=== PATIENT | female | born 1945 | race Caucasian/White ===

== ENCOUNTER → 2016-10-12 | Outpatient (CLI) | payer MEDICARE, BC ==
--- NOTE | 2016-10-13 10:07 | MM ---
Reason for exam: screening (asymptomatic). Last mammogram was performed 1 year ago. History: Patient is postmenopausal and is nulliparous. Benign right mammotome panel of the right breast, October 07, 2006. Benign right mammotome panel of the right breast, May 02, 2006. Benign excisional biopsy of the right breast, 1991. Physical Findings: A clinical breast exam by your physician is recommended on an annual basis and results should be correlated with mammographic findings. MG 3D Screening Mammo W/Cad Bilateral CC and MLO view(s) were taken. Prior study comparison: October 08, 2015, bilateral MG screening mammo w CAD. September 30, 2014, bilateral MG screening mammo w CAD. There are scattered fibroglandular densities. Finding: There are grouped/clustered calcifications in the right breast seen only on CC. Previous mammotome biopsy in the right breast x 2. There is no discrete abnormality. New finding since October 08, 2015 and September 30, 2014. ASSESSMENT: Incomplete: need additional imaging evaluation, BI-RAD 0 RECOMMENDATION: Special view mammogram of the right breast. [facility] will attempt to contact patient to return for supplemental views.
== END | disposition home or self-care (01) ==
LOC: RADMAMWWP 11:16
PROVIDERS: ATTEND Family Medicine
DX: Z12.31 Encounter for screening mammogram for malignant neoplasm of breast (principal); R92.2 Inconclusive mammogram
CPT/HCPCS: 77063; G0202

== ENCOUNTER → 2016-10-14 | Outpatient (CLI) | payer MEDICARE, BC ==
--- NOTE | 2016-10-14 10:50 | MM ---
Reason for exam: additional evaluation requested from abnormal screening. Last mammogram was performed less than 1 month ago. History: Patient is postmenopausal and is nulliparous. Benign right mammotome panel of the right breast, October 07, 2006. Benign right mammotome panel of the right breast, May 02, 2006. Benign excisional biopsy of the right breast, 1991. Physical Findings: Nurse did not find any significant physical abnormalities on exam. MG 3D Work Up W/Cad RT LM and CC with magnification view(s) were taken of the right breast. Prior study comparison: October 12, 2016, bilateral MG 3d screening mammo w/cad. October 08, 2015, bilateral MG screening mammo w CAD. Finding: There are typically benign calcifications in the far upper inner quadrant, posterior position of the right breast. 6 month follow up recommended. These results were verbally communicated with the patient and result sheet given to the patient on 10/14/16. ASSESSMENT: Probably benign, BI-RAD 3 RECOMMENDATION: Follow-up diagnostic mammogram of the right breast in 6 months.
== END | disposition home or self-care (01) ==
LOC: RADMAMWWP 08:31
PROVIDERS: ATTEND Family Medicine
DX: R92.8 Other abnormal and inconclusive findings on diagnostic imaging of breast (principal)
CPT/HCPCS: 77051; G0206; G0279

== ENCOUNTER → 2017-03-28 | Outpatient (CLI) | payer MEDICARE, BC ==
--- NOTE | 2017-03-28 14:56 | BD ---
EXAMINATION TYPE: MG DEXA axial skeleton. DATE OF EXAM: 03/28/2017 COMPARISON: 09.30.2014 DEXA bone scan CLINICAL HISTORY: M81.0 OSTEOPOROSIS.. Height: 51.5 Weight: 218 FRAX RISK QUESTIONS: Alcohol (3 or more units per day): NO Family History (Parent hip fracture): NO Glucocorticoids (More than 3mos): YES (Ex: prednisone, prednisolone, methylprednisolone, dexamethasone, and hydrocortisone). History of Fracture in Adulthood: NO Secondary Osteoporosis: NO 1. Type 1 Diabetes: NO 2. Hyperthyroidism: NO 3. Menopause before 45: NO 4. Malnutrition: NO 5. Chronic liver disease: NO Rheumatoid Arthritis: NO Current Tobacco Use: NO RISK FACTORS HISTORY OF: Family History of Osteoporosis: NONE KNOWN Active: NOT MUCH SHE WOULD LIKE TO Diet low in dairy products/other sources of calcium: NO Postmenopausal woman: YES IN HER 50'S Lost more than 2 inches in height since high school: NOT SURE Adrenal Insufficiency: NO MEDICATIONS: Prednisone or other steroids: SINGULAIR, ADVAIR DISC, VENTOLIN How Long: FOR ASTHMA...30 YRS Thyroid Medications: YES, GENERIC SYNTHROID How Lon YRS Additional Medications: BP MEDS, WATCHING SUGAR, WITH DIET, VIT D , MULTIVITAMIN, STATIN FOR CHOLESTE ROL, NEXIUM OTC Additional History: TOTAL KNEE REPLACEMENT, ASTHMA, OSTEOARTHRITIS, EXAM MEASUREMENTS: Bone mineral densitometry was performed using the iSpecimen System. Bone mineral density as measured about the Lumbar spine is: ----- L1-L4(G/cm2): 1.352 T Score Values are as follows: ----- L1: 1.8 ----- L2: 1.3 ----- L3: 1.9 ----- L4: 0.6 ----- L1-L4: 1.4 Bone mineral density has: Increased 6.5% since study of: 09.30.2014 Bone mineral density about the R hip (g/cm2): 0.874 Bone mineral density about the L hip (g/cm2): 0.968 T Score values are as follows: -----R Neck: -1.0 -----L Neck: -1.1 -----R Total: -1.1 -----L Total: -0.3 Bone mineral density has: Decreased -0.3% since study of: 09.30.2014 FRAX%"S: A 7.2% CHANCE OF A MAJOR OSTEOPOROTIC FX AND A 0.8% CHANCE OF A HIP FX.....PROBABILITY OF FX IN 10 YRS TIME IMPRESSION: Osteopenia (T Score between -2.5 and -1 as noted by T score values at femoral neck level in the left hip remains present. There remains slightly increased risk of fracture and the patient may be conside red for treatment. Re-Screen 2-5 years. NOTE: T-SCORE=SD OF THE YOUNG ADULT MEAN.
== END | disposition home or self-care (01) ==
LOC: RADBDWWP 12:24
PROVIDERS: ATTEND Family Medicine
DX: M85.80 Other specified disorders of bone density and structure, unspecified site (principal)
CPT/HCPCS: 77080

== ENCOUNTER → 2017-05-13 | Outpatient (CLI) | payer MEDICARE, BC ==
--- NOTE | 2017-05-14 08:22 | US ---
EXAMINATION TYPE: US kidneys/renal and bladder DATE OF EXAM: 05/13/2017 COMPARISON: NONE CLINICAL HISTORY: N28.9 acute renal impairment. Abnormal labs EXAM MEASUREMENTS: Right Kidney: 8.7 x 4.2 x 4.9cm Left Kidney: 9.8 x 4.3 x 5.6 cm Right Kidney: smaller in size Left Kidney: cortical thinning Bladder: wnl Bilateral Jets seen: yes There is right renal atrophy. There is cortical thinning on the left. There is no evidence of hydrone phrosis. IMPRESSION: BILATERAL RENAL ATROPHY, GREATER ON THE RIGHT THAN THE LEFT.
== END | disposition home or self-care (01) ==
LOC: RADUSWWP 16:11
PROVIDERS: ATTEND Family Medicine
DX: N26.1 Atrophy of kidney (terminal) (principal)
CPT/HCPCS: 76770

== ENCOUNTER → 2017-05-16 | Outpatient (CLI) | payer MEDICARE, BC ==
--- NOTE | 2017-05-16 11:22 | MM ---
Reason for exam: follow-up at short interval from prior study. Last mammogram was performed 7 months ago. History: Patient is postmenopausal and is nulliparous. Benign right mammotome panel of the right breast, October 07, 2006. Benign right mammotome panel of the right breast, May 02, 2006. Benign excisional biopsy of the right breast, 1991. Physical Findings: Nurse did not find any significant physical abnormalities on exam. MG 3D Diag Mammo W/Cad RT CC, MLO, ML, and CC with magnification view(s) were taken of the right breast. Prior study comparison: October 14, 2016, right breast MG 3d work up w/cad RT. October 12, 2016, bilateral MG 3d screening mammo w/cad. There are scattered fibroglandular densities. Finding: There are stable typically benign calcifications in the right breast. Previous mammotome biopsy in the right breast. There is a chronic nodularity in the right breast. These results were verbally communicated with the patient and result sheet given to the patient on 05/16/17. ASSESSMENT: Benign, BI-RAD 2 RECOMMENDATION: Return to routine screening mammogram schedule for both breasts. Back on schedule.
== END | disposition home or self-care (01) ==
LOC: RADMAMWWP 10:11
PROVIDERS: ATTEND Family Medicine
DX: R92.8 Other abnormal and inconclusive findings on diagnostic imaging of breast (principal)
CPT/HCPCS: G0206; G0279

== ENCOUNTER → 2017-09-09 | Outpatient (CLI) | payer MEDICARE, BC ==
--- NOTE | 2017-09-09 12:33 | CT ---
EXAMINATION TYPE: CT chest wo con DATE OF EXAM: 09/09/2017 COMPARISON: 09/13/2016 HISTORY: Follow-up aneurysm. CT DLP: 430.60 mGycm. Automated Exposure Control for Dose Reduction was Utilized. TECHNIQUE: CT scan of the thorax is performed without IV contrast. FINDINGS: The heart is normal size without pericardial effusion. Coronary vessel calcifications are present and are a marker for coronary artery disease. No thoracic lymphadenopathy. Scattered calcified pleural plaques, for example, peripheral right upper to midlung axial image 16 an d along both hemidiaphragms. No consolidation or pleural effusion. There is a small hiatal hernia. Coronary artery calcification noted. Otherwise, visualized upper abdomen shows no gross normality. Bones: Endplate spondylosis throughout the mid to lower thoracic spine. No osseous destructive proces s. . IMPRESSION: 1. Calcified pleural plaques compatible with prior asbestos exposure. 2. Stable borderline aneurysm of the aorta (ascending 3.9 cm and upper descending 3.3 cm).
== END | disposition home or self-care (01) ==
LOC: RADCTMAIN 12:07
PROVIDERS: ATTEND Thoracic Surgery (Cardiothoracic Vascular Surgery)
DX: I71.2 Thoracic aortic aneurysm, without rupture (principal); J92.9 Pleural plaque without asbestos
CPT/HCPCS: 71250

== ENCOUNTER → 2017-11-29 | Outpatient (CLI) | payer MEDICARE, BC ==
--- NOTE | 2017-12-01 08:43 | MM ---
Reason for exam: screening (asymptomatic). Last mammogram was performed 6 months ago. History: Patient is postmenopausal and is nulliparous. Benign right mammotome panel of the right breast, October 07, 2006. Benign right mammotome panel of the right breast, May 02, 2006. Benign excisional biopsy of the right breast, 1991. Physical Findings: A clinical breast exam by your physician is recommended on an annual basis and results should be correlated with mammographic findings. MG 3D Screening Mammo W/Cad Bilateral CC and MLO view(s) were taken. XCCM view(s) were taken of the left breast. Prior study comparison: October 12, 2016, bilateral MG 3d screening mammo w/cad. October 08, 2015, bilateral MG screening mammo w CAD. September 30, 2014, bilateral MG screening mammo w CAD. There are scattered fibroglandular densities. Previous mammotome biopsy in the right breast x 2. There is chronic nodularity in the left breast. No significant changes when compared with prior studies. ASSESSMENT: Negative, BI-RAD 1 RECOMMENDATION: Routine screening mammogram of both breasts in 1 year.
== END | disposition home or self-care (01) ==
LOC: RADMAMWWP 12:52
PROVIDERS: ATTEND Family Medicine
DX: Z12.31 Encounter for screening mammogram for malignant neoplasm of breast (principal)
CPT/HCPCS: 77063; 77067

== ENCOUNTER 2018-03-16 12:05 | Day surgery (SDC) | payer MEDICARE, BC ==
[2018-03-14 10:00] VITALS: BMI 38.4
[~2018-03-16 12:05] MED LIST: LACTATED RINGERS 1,000 ML IV SCH; LIDOCAINE 1% 20 ML VIAL (10MG/ML) FOR IV START INTRADERMA PRN; MIDAZOLAM 2 MG/2 ML VIAL IV PRN
[2018-03-16 12:55] VITALS: RESP 18; TEMP 98.1
[2018-03-16] MEDS ORDERED: PROPOFOL 10 MG/ML 20 ML VIAL IV ONE (13:44)
[2018-03-16] MEDS ORDERED: LIDOCAINE 1% INJ 10MG/ML (20 ML MDV) ONE (13:44)
--- NOTE | 2018-03-16 14:16 | P.PCN ---
Date of Procedure: 03/16/18 Procedure(s) Performed: Procedure: Esophagogastroduodenoscopy and biopsy. Preoperative diagnosis: Chronic reflux symptoms requiring PPI therapy with dysphagia off treatment. Postoperative diagnosis: 1. Hiatal hernia but no obvious esophagitis or complicated reflux disease. 2. Mild antral gastritis. 3. Multiple biopsies obtained from the duodenum, antrum and esophagus. Preparation and sedation: Was provided by anesthesia. Brief clinical history: The patient is a 73-year-old female who is scheduled for this evaluation for chronic reflux symptoms that has been maintained on Nexium for many years. The patient was concerned about possible kidney issues related to her PPI therapy, however, when she was changed to H2 blockers, she started to have difficulty swallowing within 2 days and those symptoms have since improved when she was put back on Nexium. This evaluation is to assess for esophagitis, complicated reflux disease or other pathology. Procedure: With the patient on her left lateral decubitus position and after informed consent and adequate sedation, I passed the Olympus-GIF 160 video upper endoscope through the cricopharyngeus down the esophagus. GE junction was around 37-38 cm from the incisors and there was a small sliding hiatal hernia but no obvious esophagitis or complicated reflux disease. Specifically, there was no evidence of Elise's esophagus, ulcers or strictures. The endoscope was then passed into the stomach which was insufflated with air and inspected in detail including the retroflex view in the cardia. There was some mottling and erythema in the antrum but no ulcers or erosions. Pyloric channel , duodenal bulb, post bulbar area and descending duodenum appeared within normal limits. Because of her symptoms, I obtained biopsies from the duodenum, antrum and esophagus then the endoscope was withdrawn. The patient tolerated the procedure well. Plan: The patient was reassured. Will await pathology results and make further plans based on her course and biopsy results. I will keep you updated on her progress.
[2018-03-16 14:47] VITALS: BP 157/79; PULSE 69
== END 2018-03-16 14:57 | disposition home or self-care (01) ==
LOC: ORWHC2ENDO 12:05
DX: K21.9 Gastro-esophageal reflux disease without esophagitis (principal); K29.50 Unspecified chronic gastritis without bleeding; K44.9 Diaphragmatic hernia without obstruction or gangrene; I10 Essential (primary) hypertension; E78.5 Hyperlipidemia, unspecified; J45.909 Unspecified asthma, uncomplicated; E07.9 Disorder of thyroid, unspecified; M19.90 Unspecified osteoarthritis, unspecified site; Z88.6 Allergy status to analgesic agent; Z79.890 Hormone replacement therapy; Z79.51 Long term (current) use of inhaled steroids; Z79.899 Other long term (current) drug therapy
CPT/HCPCS: 43239; 88305; J2001; J2704

== ENCOUNTER → 2018-05-15 | Outpatient (CLI) | payer MEDICARE, BC ==
--- NOTE | 2018-05-15 12:40 | XR ---
Lumbosacral spine HISTORY: Low back pain 5 views of the lumbosacral spine correlated to prior exam 08/14/2014 There is a mild scoliotic curvature as on previous, bone mineralization again noted to be decreased. Multilevel spondylosis is present. No evident spondylolysis. Multilevel loss of disc height present, there is multilevel vacuum phenomenon present. Dense vascular calcifications are noted. Present in th e posterior elements of the lower lumbar spine. IMPRESSION: Osteopenia, degenerative disc disease, facet arthropathy and scoliosis. Findings are eriberto lar to prior exam.
== END | disposition home or self-care (01) ==
LOC: RADXRYALE 11:08
PROVIDERS: ATTEND Physician Assistant Medical
DX: M51.36 Other intervertebral disc degeneration, lumbar region (principal); M46.96 Unspecified inflammatory spondylopathy, lumbar region; M85.88 Other specified disorders of bone density and structure, other site; M41.86 Other forms of scoliosis, lumbar region
CPT/HCPCS: 72110

== ENCOUNTER → 2018-09-14 | Outpatient (CLI) | payer MEDICARE, BC ==
--- NOTE | 2018-09-14 11:35 | CT ---
EXAMINATION TYPE: CT chest wo con DATE OF EXAM: 09/14/2018 COMPARISON: 09/09/2017 HISTORY: Follow up scan. No complaints at time of scan CT DLP: 498.9 mGycm. Automated Exposure Control for Dose Reduction was Utilized. TECHNIQUE: CT scan of the thorax is performed without IV contrast. FINDINGS: LUNGS: Calcified pleural plaques are redemonstrated bilaterally. Very subtle groundglass opacity danisha uring 7 mm is seen within the inferior posterior aspect of the right upper lobe on sagittal images 42 of series 7 and axial image 20 of series 4. There is no pleural effusion or pneumothorax seen. The tracheobronchial tree is patent. MEDIASTINUM: There is redemonstration of ascending thoracic aortic aneurysmal dilatation measuring up to 4.0 cm, similar to the prior with this measured 3.9 cm. Aortic root is within normal limits measu ring 3.1 cm. Descending thoracic aorta again measures 3.3 cm. Lack of IV contrast is noted to limit evaluation for mediastinal and especially hilar adenopathy. The re are no definitive greater than 1 cm hilar or mediastinal lymph nodes. No cardiomegaly. Coronary ar nisha calcifications are again noted, moderate to severe. Trace pericardial fluid is seen. Extensive a therosclerosis is noted of the thoracic aorta and its branches. OTHER: A small hiatal hernia is evident. Moderate multilevel degenerative change of the thoracic spin e is seen. IMPRESSION: 1. Similar size of the ascending thoracic aortic aneurysm measuring 4.0 cm and stable size of the milton cending thoracic aorta measuring 3.3 cm. 2. New vague groundglass opacity in the right upper lobe favored to relate to atelectasis or pneumoni tis. Attention on follow-up exam is recommended. 3. Redemonstration of calcified pleural plaques suggesting prior asbestos exposure.
== END | disposition home or self-care (01) ==
LOC: RADCTMAIN 10:51
PROVIDERS: ATTEND Thoracic Surgery (Cardiothoracic Vascular Surgery)
DX: I71.2 Thoracic aortic aneurysm, without rupture (principal); R91.8 Other nonspecific abnormal finding of lung field; J92.9 Pleural plaque without asbestos
CPT/HCPCS: 71250

== ENCOUNTER → 2018-11-16 | Outpatient (CLI) | payer MEDICARE, BC ==
--- NOTE | 2018-11-17 10:10 | ECHOF ---
Referral Reason:R06.02 SOB; I10 Essential hypertension MEASUREMENTS -------- HEIGHT: 157.5 cm WEIGHT: 99.3 kg BP: RVIDd: 3.1 cm (< 3.3) IVSd: 0.9 cm (0.6 - 1.1) LVIDd: 4.2 cm (3.9 - 5.3) LVPWd: 0.9 cm (0.6 - 1.1) IVSs: 1.1 cm LVIDs: 2.4 cm LVPWs: 1.2 cm LAESV Index (A-L): 29.17 ml/m Ao Diam: 2.5 cm (2.0 - 3.7) AV Cusp: 1.8 cm (1.5 - 2.6) LA Diam: 3.0 cm (2.7 - 3.8) MV E Sami: 0.94 m/s MV DecT: 260 ms MV A Sami: 1.29 m/s MV E/A Ratio: 0.73 RAP: 5.00 mmHg RVSP: 39.83 mmHg FINDINGS -------- Sinus rhythm. This was a technically adequate study. The left ventricular size is normal. Left ventricular wall thickness is normal. Overall left vent ricular systolic function is normal with, an EF between 55 - 60 %. The right ventricle is normal in size and function. LA is midly dilated 29-33ml/m2. The right atrium is normal in size. There is mild aortic valve sclerosis. There is no evidence of aortic regurgitation. There is no e vidence of aortic stenosis. Mild mitral annular calcification present. There is trace to mild mitral regurgitation. Mild tricuspid regurgitation present. There is mild pulmonary hypertension. The right ventricular systolic pressure, as measured by Doppler, is 39.83mmHg. The pulmonic valve was not well visualized. The aortic root size is normal. Normal inferior vena cava with normal inspiratory collapse consistent with estimated right atrial pre ssure of 5 mmHg. There is no pericardial effusion. CONCLUSIONS -------- 1. Sinus rhythm. 2. This was a technically adequate study. 3. The left ventricular size is normal. 4. Left ventricular wall thickness is normal. 5. Overall left ventricular systolic function is normal with, an EF between 55 - 60 %. 6. LA is midly dilated 29-33ml/m2. 7. There is mild aortic valve sclerosis. 8. Mild mitral annular calcification present. 9. There is trace to mild mitral regurgitation. 10. Mild tricuspid regurgitation present. 11. There is mild pulmonary hypertension. 12. The right ventricular systolic pressure, as measured by Doppler, is 39.83mmHg. 13. The pulmonic valve was not well visualized. 14. The aortic root size is normal. 15. There is no pericardial effusion. MOBILITY ARCHITECT MANAGER: Nathaniel Meadows RDCS
== END | disposition home or self-care (01) ==
LOC: RADECHMAIN 12:42
PROVIDERS: ATTEND Physician Assistant Medical
DX: I08.3 Combined rheumatic disorders of mitral, aortic and tricuspid valves (principal); I27.20 Pulmonary hypertension, unspecified; I10 Essential (primary) hypertension
CPT/HCPCS: 93306

== ENCOUNTER → 2018-12-18 | Outpatient (CLI) | payer MEDICARE, BC ==
--- NOTE | 2018-12-19 07:42 | MM ---
Reason for exam: screening (asymptomatic). Last mammogram was performed 1 year and 1 month ago. History: Patient is postmenopausal and is nulliparous. Benign right mammotome panel of the right breast, October 07, 2006. Benign right mammotome panel of the right breast, May 02, 2006. Benign excisional biopsy of the right breast, 1991. Physical Findings: A clinical breast exam by your physician is recommended on an annual basis and results should be correlated with mammographic findings. MG 3D Screening Mammo W/Cad Bilateral CC and MLO view(s) were taken. Prior study comparison: November 29, 2017, bilateral MG 3d screening mammo w/cad. May 16, 2017, right breast MG 3d diag mammo w/cad RT. The breast tissue is heterogeneously dense. This may lower the sensitivity of mammography. Stable benign calcifications. There is no discrete abnormality including area of concern. No significant changes when compared with prior studies. ASSESSMENT: Benign, BI-RAD 2 RECOMMENDATION: Routine screening mammogram of both breasts in 1 year.
== END | disposition home or self-care (01) ==
LOC: RADMAMWWP 11:00
PROVIDERS: ATTEND Family Medicine
DX: Z12.31 Encounter for screening mammogram for malignant neoplasm of breast (principal)
CPT/HCPCS: 77063; 77067

== ENCOUNTER → 2018-12-18 | Outpatient (CLI) | payer MEDICARE, BC ==
[2018-12-18 12:01] LABS: Blood Urea Nitrogen 11 mg/dL (7-17)
--- NOTE | 2018-12-18 12:54 | CT ---
EXAMINATION TYPE: CT chest w con DATE OF EXAM: 12/18/2018 COMPARISON: 09/14/2018 HISTORY: Lung mass CT DLP: 499 mGycm Automated exposure control for dose reduction was used. CONTRAST: CT scan of the chest is performed with IV Contrast, patient injected with 100 mL of Isovue 300. FINDINGS: LUNGS: The lungs are grossly clear, there is no concerning parenchymal mass or nodule identified. Marco Antonio cified pleural plaques identified. There is no pleural effusion or pneumothorax seen. The tracheobr onchial tree is patent. MEDIASTINUM: There are no greater than 1 cm hilar or mediastinal lymph nodes. No pericardial effusi on is seen. Ectasia ascending thoracic aortic aneurysm with maximal AP dimension of 3.9 cm. The heart is not enlarged. UPPER ABDOMEN: Mild fatty hepatic infiltration noted. Small sliding-type hiatal hernia. OTHER: No additional significant abnormality is seen. IMPRESSION: 1. No evidence for pulmonary mass. Calcified pleural plaques noted.
== END | disposition home or self-care (01) ==
LOC: RADCTMAIN 11:23
PROVIDERS: ATTEND Thoracic Surgery (Cardiothoracic Vascular Surgery)
DX: J92.9 Pleural plaque without asbestos (principal)
CPT/HCPCS: 82565; 84520; 71260; 36415; Q9967

== ENCOUNTER → 2019-10-18 | Outpatient (CLI) | payer MEDICARE, BC ==
--- NOTE | 2019-10-18 10:40 | XR ---
EXAMINATION TYPE: XR chest 2V DATE OF EXAM: 10/18/2019 COMPARISON: 09/06/2018 TECHNIQUE: PA and lateral views submitted. HISTORY: Shortness of breath FINDINGS: The lungs are clear and there is no pneumothorax, pleural effusion, or focal pneumonia. Hypertrophi c and degenerative change of the spine. Atherosclerotic change aorta. No overt failure. Pleural-based calcifications are seen. IMPRESSION: 1. No acute process. Correlate for asbestos related disease.
== END ==
LOC: RADXRYALE 09:45
PROVIDERS: ATTEND Physician Assistant Medical
DX: R06.02 Shortness of breath (principal)
CPT/HCPCS: 71046

== ENCOUNTER → 2020-05-26 | Outpatient (CLI) | payer MEDICARE, BC ==
--- NOTE | 2020-05-27 09:26 | CT ---
EXAMINATION TYPE: CT angio chest DATE OF EXAM: 05/26/2020 COMPARISON: Prior CT December 18, 2018 and older CTs HISTORY: Thoracic aortic aneurysm. CT DLP: 988.4 mGycm. Automated Exposure Control for Dose Reduction was Utilized. CONTRAST: CTA scan of the thorax is performed without and with IV Contrast, patient injected with 100ml mL of I sovue 370, pulmonary embolism protocol. Three-D reconstructed images are created on an independent wo rkstation and reviewed. FINDINGS: LUNGS: Calcified bilateral pleural plaques redemonstrated consistent with prior asbestos exposure. M ild scattered linear scarring and/or atelectatic change. No suspicious new consolidation. No pleural effusion or pneumothorax noted bilaterally. No suspicious new noncalcified nodules or masses. MEDIASTINUM: There are no is new greater than 1 cm noncalcified hilar or mediastinal lymph nodes. Ne w prominent but subcentimeter posterior distal esophageal lymph node axial image 42. No pericardial e ffusion is seen. Mild cardiomegaly is present. Ascending aortic aneurysm up to 3.7 cm axial image 24 is redemonstrated. No significant interval change accounting for change in technique. Mild to moderat e calcified plaque in the visualized aorta is redemonstrated. Coronary artery calcification redemonst rated. OTHER: Slight underlying scoliotic curvature with moderate multilevel spurring redemonstrated. IMPRESSION: Accounting for technical differences, stable 3.7 cm ectasia of the ascending thoracic aor ta.
== END | disposition home or self-care (01) ==
LOC: RADCTMAIN 15:07
PROVIDERS: ATTEND Physician Assistant Medical
DX: I77.810 Thoracic aortic ectasia (principal); I10 Essential (primary) hypertension; K21.9 Gastro-esophageal reflux disease without esophagitis; E55.9 Vitamin D deficiency, unspecified
CPT/HCPCS: 82565; 84520; 71275; 36415; Q9967

== ENCOUNTER → 2020-07-23 | Outpatient (CLI) | payer MEDICARE, BC ==
--- NOTE | 2020-07-24 20:28 | BD ---
EXAMINATION TYPE: Bone Density DATE OF EXAM: 07/23/2020 COMPARISON: 03/28/2017 CLINICAL HISTORY: Height: 60.2 IN Weight: 198 LBS RISK FACTORS HISTORY OF: Family History of Osteoporosis: YES FATHER Active: YES Diet low in dairy products/other sources of calcium: YES Postmenopausal woman: AGE 50 Lost more than 2 inches in height since high school: YES 10/11" MEDICATIONS: Thyroid Medications: YES Which medication: Synthroid How Lon+ YEARS Additional Medications: CALCIUM, VIT D, SYNTHROID, HIGH BLOOD PRESSURE MEDS, SINGULAIR, PAIN MED, NEX IUM EXAM MEASUREMENTS: Bone mineral densitometry was performed using the [employer] System. Bone mineral density as measured about the Lumbar spine is: ----- L1-L4(G/cm2): 1.437 T Score Values are as follows: ----- L2: 2.3 ----- L3: 2.0 ----- L4: 1.1 ----- L1-L4: 2.1 Bone mineral density has: Increased 4.1% since study of: 03/28/2017 Bone mineral density about the R hip (g/cm2): 0.877 Bone mineral density about the L hip (g/cm2): 0.838 T Score values are as follows: -----R Neck: -1.2 -----L Neck: -1.4 -----R Total: -1.2 -----L Total: -0.7 Bone mineral density has: Decreased -3.4% since study of: 03/28/2017 IMPRESSION: Osteopenia (T Score between -2.5 and -1). There is slightly increased risk of fracture and the patient may be considered for treatment. Re-Screen 2-5 years. NOTE: T-SCORE=SD OF THE YOUNG ADULT MEAN.
--- NOTE | 2020-07-25 11:57 | MM ---
Reason for exam: screening (asymptomatic). Last mammogram was performed 1 year and 7 months ago. History: Patient is postmenopausal and is nulliparous. Benign right mammotome panel of the right breast, October 07, 2006. Benign right mammotome panel of the right breast, May 02, 2006. Benign excisional biopsy of the right breast, 1991. Physical Findings: A clinical breast exam by your physician is recommended on an annual basis and results should be correlated with mammographic findings. MG 3D Screening Mammo W/Cad Bilateral CC and MLO view(s) were taken. Prior study comparison: December 18, 2018, bilateral MG 3d screening mammo w/cad. November 29, 2017, bilateral MG 3d screening mammo w/cad. There are scattered fibroglandular densities. Previous mammotome biopsy in the right breast x 2. No significant changes when compared with prior studies. ASSESSMENT: Negative, BI-RAD 1 RECOMMENDATION: Routine screening mammogram of both breasts in 1 year.
== END | disposition home or self-care (01) ==
LOC: RADMAMWWP 14:33
PROVIDERS: ATTEND Family Medicine
DX: Z12.31 Encounter for screening mammogram for malignant neoplasm of breast (principal); M85.80 Other specified disorders of bone density and structure, unspecified site
CPT/HCPCS: 77063; 77067; 77080

== ENCOUNTER → 2022-03-19 | Outpatient (CLI) | payer MEDICARE, BC ==
--- NOTE | 2022-03-22 09:08 | MM ---
Reason for Exam: Screening (asymptomatic). Last mammogram was performed 1 year(s) and 8 month(s) ago. Patient History: Menarche at age 13. Patient has no children. Postmenopausal. 1991, Benign Excisional Biopsy on the right side. 10/07/2006, Benign Core Biopsy on the right side. 05/02/2006, Benign Core Biopsy on the right side. Risk Values: Hanh 5 year model risk: 2.9%. NCI Lifetime model risk: 5.5%. Prior Study Comparison: 11/29/2017 Bilateral Screening Mammogram, [facility]. 12/18/2018 Bilateral Screening Mammogram, [facility]. 07/23/2020 Bilateral Screening Mammogram, [facility]. Tissue Density: The breast tissue is heterogeneously dense. This may lower the sensitivity of mammography. Findings: Analyzed By CAD. There is no suspicious group of microcalcifications or new suspicious mass in either breast. Stable benign calcifications. Overall Assessment: Benign, BI-RAD 2 Management: Screening Mammogram of both breasts in 1 year. A clinical breast exam by your physician is recommended on an annual basis and results should be correlated with mammographic findings. Electronically signed and approved by: Burak Ovreton M.D. Radiologis
== END | disposition home or self-care (01) ==
LOC: RADMAMWWP 15:15
PROVIDERS: ATTEND Family Medicine
DX: Z12.31 Encounter for screening mammogram for malignant neoplasm of breast (principal); Z78.0 Asymptomatic menopausal state
CPT/HCPCS: 77063; 77067

== ENCOUNTER → 2022-05-25 | Outpatient (CLI) | payer MEDICARE, BC ==
--- NOTE | 2022-05-25 11:30 | XR ---
EXAMINATION TYPE: XR chest 2V DATE OF EXAM: 05/25/2022 11:17 AM COMPARISON: Chest radiographs from 10/18/2019 TECHNIQUE: XR chest 2V Frontal and lateral views of the chest. CLINICAL INDICATION:Female, 77 years old with history of R05.9 Cough; FINDINGS: Lungs/Pleura: There is no evidence of pleural effusion, focal consolidation, or pneumothorax. Pulmonary vascularity: Unremarkable. Heart/mediastinum: Cardiomediastinal silhouette is unremarkable. Musculoskeletal: No acute osseous pathology. IMPRESSION: No acute cardiopulmonary disease/process.
== END | disposition home or self-care (01) ==
LOC: RADXRMAIN 11:09
PROVIDERS: ATTEND Otolaryngology
DX: R05.9 Cough, unspecified (principal)
CPT/HCPCS: 71046

== ENCOUNTER → 2023-10-19 | Outpatient (CLI) | payer MEDICARE, BC ==
--- NOTE | 2023-10-19 11:16 | XR ---
EXAMINATION TYPE: XR lumbosacral spine 5 views DATE OF EXAM: 10/19/2023 Comparison: 05/15/2018 Clinical History: 78-year-old female [id number] IDD, PAIN RT LEG, PAIN LT LEG Findings: Moderate to advanced degenerative disc disease throughout. Hypertrophic facet arthropathy. Degenerati ve grade 1 retrolisthesis L1-L2 and L2-L3. Vertebral body heights are preserved. Atherosclerotic calc ification throughout the abdominal aorta. 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 Slight levoconvex curvature lumbar spine. Vertebral body heights are preserved. Impression: 1. Degenerated levoconvex curvature lumbar spine. Moderate to advanced multilevel degenerative disc d isease, progressed from 2018. 2. Degenerative grade 1 retrolisthesis L1-L2 and L2-L3. 3. No vertebral compression collapse.
== END | disposition home or self-care (01) ==
LOC: RADXRYALE 10:17
PROVIDERS: ATTEND Physician Assistant Medical
DX: M51.36 Other intervertebral disc degeneration, lumbar region (principal); M43.16 Spondylolisthesis, lumbar region; M79.661 Pain in right lower leg; M79.662 Pain in left lower leg; M43.8X6 Other specified deforming dorsopathies, lumbar region
CPT/HCPCS: 72110

== ENCOUNTER → 2024-08-07 | Outpatient (CLI) | payer MEDICARE, BC ==
--- NOTE | 2024-08-07 10:05 | XR ---
EXAMINATION TYPE: XR knee complete RT DATE OF EXAM: 08/07/2024 9:42 AM COMPARISON: 12/23/2015 CLINICAL INDICATION: Female, 79 years old with history of [id number] RT KNEE PAIN; [facility] TECHNIQUE: XR knee complete RT; examined in Frontal, lateral and oblique projections. FINDINGS: No evidence of any acute osseous pathology, soft tissue swelling, or joint effusion is no lanny. Tricompartmental osteophyte formation involving the femoral condyles, tibial plateau and patella . Severe bilateral joint space narrowing. IMPRESSION: 1. No acute osseous pathology. 2. End-stage right knee tricompartmental osteoarthritic changes. [facility], , 08/07/2024 10:02 AM
== END | disposition home or self-care (01) ==
LOC: RADXRYALE 09:19
PROVIDERS: ATTEND Physician Assistant Medical
DX: M17.11 Unilateral primary osteoarthritis, right knee (principal)